=== PATIENT | male | born 1965 | race Caucasian/White ===

== ENCOUNTER 2018-01-21 05:21 | Day surgery (SDC) | payer OTHER ==
[~2018-01-21] VITALS: Ht 167.6 cm; Wt 73.0 kg
--- NOTE | ~2018-01-21 | OP ---
PATIENT NAME: STELLA LO MEDICAL RECORD: [id number] :63 LOCATION:[facility] ADMISSION DATE: SURGEON: RUDY FLOWERS MD DATE OF OPERATION: 01/21/2018 PREOPERATIVE DIAGNOSIS: Ganglion cyst of the left hand. POSTOPERATIVE DIAGNOSIS Dupuytrens contracture with palmar fibromatosis. PROCEDURE: Excision of Dupuytren contracture and palmar fibrotic nodule. SURGEON: Rudy Flowers MD ANESTHESIA: General. INTRAOPERATIVE COMPLICATIONS: None. SUMMARY OF PATHOLOGIC FINDINGS: While this was scheduled as a ganglion cyst, there was palmar fibromatosis requiring excision of the left ring finger Dupuytren contracture. OPERATIVE SUMMARY IN DETAIL: After obtaining the appropriate preoperative orthopedic surgery consent as well as anesthetic consultation, evaluation and clearance, the patient was brought to the operating room and placed on the operating table in supine position. After adequate general laryngeal mask airway had been administered, tourniquet was placed on the proximal aspect of the left upper extremity. The left upper extremity was then prepped and draped in routine sterile fashion. The arm was elevated and exsanguinated. Tourniquet was inflated to 250 mmHg. A volar zigzag incision was made over the Dupuytren contracture. Careful dissection was carried down across the entire Dupuytren contracture as well as the palmar fibrosis. The contracture was excised in its entirety with the nodule in place. Having completed this, the wound was irrigated and closed with 4-0 Prolene in a routine interrupted fashion. Sterile dressings were applied. Tourniquet was deflated. The patient was awakened and taken to recovery room in stable condition. All final needle and sponge counts were correct. TRANSINT:[id number] Voice Confirmation ID: [id number] DOCUMENT ID: [id number] RUDY FLOWERS MD at 1538 CC: [id number] DICTATION DATE: 01/21/18 1018 [employer] MAINTENANCE MANAGER: 01/21/18 1051 [facility] 01/21/18 [facility] [address] [place] [address]
[2018-01-21 07:43] VITALS: BP 152/79; Ht 167.6 cm; Wt 73.0 kg
[2018-01-21] MEDS ORDERED: HYDROCODONE-APA1 TAB PO (10:15)
== END 2018-01-21 12:30 | disposition home or self-care (01) ==
LOC: D.OPS 05:21 → D.SDCHOLD 05:30 → D.OPS 08:30
DX: M72.0 Palmar fascial fibromatosis [Dupuytren] (principal); Z01.812 Encounter for preprocedural laboratory examination